=== PATIENT | female | born 1965 | race Hispanic/Latino ===

== ENCOUNTER 2020-08-11 10:36 | Emergency (ER) | payer OTHER ==
[~2020-08-11] VITALS: Ht 152.4 cm; Wt 108.9 kg
[2020-08-11] MEDS ORDERED: MECLIZINE HCL 12.5 MG TAB PO ONE (11:00)
[2020-08-11] MEDS ORDERED: ONDANSETRON HCL 4 MG ORAL DISINTEGRATING TAB PO ONE (11:00)
[2020-08-11] MEDS ORDERED: ONDANSETRON HCL 4 MG ORAL DISINTEGRATING TAB ONE (11:37)
[2020-08-11] MEDS ORDERED: MECLIZINE HCL 12.5 MG TAB ONE (11:37)
== END 2020-08-11 13:07 | disposition home or self-care (01) ==
LOC: FSED 10:46
DX: R42 Dizziness and giddiness (principal); I10 Essential (primary) hypertension
CPT/HCPCS: 70450; 80053; 81025; 84484; 85025; 93005; 99284; J8597; Q0162